=== PATIENT | male | born 1990 ===

== ENCOUNTER 2018-10-05 19:15 | Emergency (ER) | payer OTHER ==
[2018-10-05 20:27] VITALS: TEMP 98.2; O2SAT 99
[2018-10-05] MEDS ORDERED: Tdap Vaccine 0.5 ml Vial (10-64 yrs) IM ONE ×2 (20:41→21:28)
[2018-10-05] MEDS ORDERED: Lidocaine 1% Inj (20ml) INFIL ONE (20:43)
[2018-10-05] MEDS ORDERED: Bacitracin 500 Units/gm Oint Foilpak UD TOP ONE (20:43)
[2018-10-05] MEDS ORDERED: Lidocaine Hydrochloride 5 ML INJ ONE (21:03)
[2018-10-05] MEDS ORDERED: Bacitracin 500 Units/gm Oint Foilpak UD ONE (21:12)
--- NOTE | 2018-10-05 21:20 | C.PDOC ---
History Of Present Illness 27 year old male come to ED for left hand laceration that he sustained accidentally while opening a package with a knife today. Patient denies any other injuries. no numbness or tingling. no difficulty moving any of his fingers. last tdap unk Time Seen by Provider: 10/05/18 20:32 Chief Complaint (Nursing): Abnormal Skin Integrity History Per: Patient History/Exam Limitations: no limitations Onset/Duration Of Symptoms: Hrs Current Symptoms Are (Timing): Still Present Location Of Injury: Left: Hand Recent travel outside of the [place]: No Additional History Per: Patient Past Medical History Reviewed: Historical Data, Nursing Documentation, Vital Signs Vital Signs: Last Vital Signs Temp 98.2 F 10/05/18 20:10 Pulse 72 10/05/18 20:10 Resp 16 10/05/18 20:10 BP 109/69 10/05/18 20:10 Pulse Ox 99 10/05/18 20:10 - Medical History PMH: No Chronic Diseases Surgical History: No Surg Hx Family History: States: No Known Family Hx - Social History Hx Alcohol Use: No Hx Substance Use: No - Immunization History Hx Tetanus Toxoid Vaccination: Yes (3 years ago) Hx Influenza Vaccination: No Hx Pneumococcal Vaccination: No Review Of Systems Musculoskeletal: Positive for: Hand Pain (left hand laceration) Physical Exam - Physical Exam Appears: Non-toxic, No Acute Distress Skin: Warm, Dry, Other (2.5cm vertical shallow laceration on left hand palmar surface midline just distal to wrist. ) Extremity: Normal ROM (able to move all fingers on left hand flex and extend without any difficulty. from at left wrist), Capillary Refill (less teddy 2 seconds. ) Pulses: Left Radial: Normal Neurological/Psych: Oriented x3, Normal Speech, Normal Cognition, Normal Motor (left hand ), Normal Sensation (left hand ) ED Course And Treatment O2 Sat by Pulse Oximetry: 99 (on RA) Pulse Ox Interpretation: Normal Laceration - Laceration Repair No standard instances Wound Length (In cm): 2,5 Description Of Wound: Linear Anesthesia: Lidocaine 1% Wound Examination: Irrigated With Saline, No FB With Wound Exploration, No Tendon Injury With Wound Exploration Wound Closure: Suture (#4) Suture Technique And Material Used: Interrupted, Nylon (4-0) Wound Complexity: Simple Medical Decision Making Medical Decision Making: Plan: Tylenol 650mg PO Bacitracin 1ea TOP Lidocaine 1% 5ml Adacel 0.5ml IM Disposition Counseled Patient/Family Regarding: Diagnosis, Need For Followup - Disposition Disposition: HOME/ ROUTINE Disposition Time: 21:18 Condition: GOOD Additional Instructions: Keep wound clean and dry. Change dressing daily; wash gently with soap and water, then apply antibiotic ointment. Return to ER in 10 days for suture removal. Return sooner if any signs of infection such as redness. swelling. pus from wound. Tylenol or Motrin for pain. Try pnot to move hand too much for the first few days. Prescriptions: Bacitracin OINT 1 applic TOP BID #1 tube Ibuprofen [Motrin] 600 mg PO TID #30 tab Instructions: Laceration Repair With Stitches (DC) Forms: General Discharge Instructions, [facility] (Slovak), Work Excuse - Clinical Impression Clinical Impression: Laceration of left hand - PA / [employer] ADJUNCT / Resident Statement MD/DO has examined the patient and agrees with the treatment plan. - Scribe Statement The provider has reviewed the documentation as recorded by the iT Ramey All medical record entries made by the Ti were at my direction and personally dictated by me. I have reviewed the chart and agree that the record accurately reflects my personal performance of the history, physical exam, medical decision making, and the department course for this patient. I have also personally directed, reviewed, and agree with the discharge instructions and disposition.
[2018-10-05 21:38] VITALS: BP 120/70; PULSE 70; RESP 14
== END 2018-10-05 21:37 | disposition home or self-care (01) ==
LOC: C.ER 19:15
DX: S61.412A Laceration without foreign body of left hand, initial encounter (principal); W26.0XXA Contact with knife, initial encounter